=== PATIENT | female | born 1995 | race Two or more races ===

== ENCOUNTER 2017-07-03 22:43 | Emergency (ER) | payer MEDICAID ==
[~2017-07-03] VITALS: Ht 157.5 cm; Wt 69.9 kg
[2017-07-03 22:51] VITALS: BP 114/75
--- NOTE | 2017-07-03 23:36 | NUR ---
Pt placed in bed 7.
--- NOTE | 2017-07-03 23:40 | NUR ---
PATIENT IS A 22 Y/O FEMALE WHO PRESENTS TO THE ED C/O ABD PAIN. PT STATES, "I AM 8 WEEKS AND I HAVE BEEN HAVING SOME ABD PAIN RECENTLY, I FEEL LIKE I HAVE A FEVER AND CHILLY." PT REPORTS TAKING MEDICINE FOR A BLADDER INFECTION AND CANNOT EAT. PT REPORTS 9/10 SHARP ABD PAIN THAT DOES NOT RADIATE. PT DENIES CP, SOB, REPORTS VOMITING DENIES NAUSEA/DIARRHEA. PT AAOX4, RR EVEN/UNLABORED. PT REPOSITIONED FOR COMFORT, BED IN LOWEST POSITION. ER MD DR. SALAZAR NOTIFIED. WILL CONTINUE TO MONITOR.
--- NOTE | 2017-07-03 23:49 | NUR ---
Patient being evaluated by physician at bedside.
[2017-07-04] MEDS ORDERED: NACL 0.9% 1,000 ML IV ONE ×2 (00:04→02:25)
[2017-07-04] MEDS ORDERED: ONDANSETRON 4 MG/2 ML VIAL IVP ONE ×2 (00:05→02:25)
[2017-07-04 00:44] LABS: HEMOGLOBIN 13.7 g/dL (12.0-16.0); MEAN CORPUSCULAR HEMOGLOBIN 29 pg (27-31); MEAN CORPUSCULAR HGB CONC 34 g/dL (33-37); MEAN CORPUSCULAR VOLUME 86 fL (80-94); PLATELET COUNT (AUTO) 295 K/uL (140-450); RED CELL DISTRIBUTION WIDTH 12.4 % (11.6-13.7); WHITE BLOOD COUNT (AUTO) 13.9 K/uL (4.8-10.8)
[2017-07-04 00:46] LABS: EOSINOPHILS % (MANUAL) 1 % (0-4); LYMPHOCYTES % (MANUAL) 34 % (20-46); MONOCYTES % (MANUAL) 3 % (5-12)
[2017-07-04 00:47] LABS: ALBUMIN 3.9 g/dL (3.4-5.0); CARBON DIOXIDE 25.5 mmol/L (21-32); CREATININE 0.7 mg/dL (0.6-1.3); POTASSIUM 3.5 mmol/L (3.5-5.1); TOTAL BILIRUBIN 1.2 mg/dL (0.0-1.0)
[2017-07-04 01:07] LABS: APPEARANCE,URINE CLOUDY (CLEAR); BILIRUBIN,URINE 1+ (NEGATIVE); BLOOD, URINE NEGATIVE (NEGATIVE); COLOR,URINE YELLOW (YELLOW); LEUKOCYTE ESTERASE ,URINE 2+ (NEGATIVE); NITRITE, URINE NEGATIVE (NEGATIVE); PH,URINE 6.5 (5.0-9.0); UGLUCOSE NEGATIVE (NEGATIVE)
[2017-07-04 01:23] LABS: RBC,URINE 0-5 (RARE) /HPF (0-5); WBC,URINE TOO MANY TO COUNT /HPF (0-5)
--- NOTE | 2017-07-04 02:50 | NUR ---
Darlene zhu in EDM - 07/04/17 at 0311 by MEDMARIANV IV removed, catheter intact and site benign. Applied folded 4x4 gauze and tape to stop bleeding.
--- NOTE | 2017-07-04 03:05 | NUR ---
IV removed, catheter intact and site benign. Applied folded 4x4 gauze and tape to stop bleeding.
[2017-07-04 03:10] VITALS: BP 128/69
--- NOTE | 2017-07-04 03:10 | NUR ---
Patient discharged with v/s stable. Written and verbal after care instructions given and explained. Patient alert, oriented and verbalized understanding of instructions. Ambulatory with steady gait. All questions addressed prior to discharge. ID band removed. Patient advised to follow up with PMD. Rx of DICLEGIS 10MG/10MG given. Patient educated on indication of medication including possible reaction and side effects. Opportunity to ask questions provided and answered.
== END 2017-07-04 03:10 | disposition home or self-care (01) ==
LOC: MED 22:43
DX: O23.41 Unspecified infection of urinary tract in pregnancy, first trimester (principal); Z3A.08 8 weeks gestation of pregnancy; Z88.0 Allergy status to penicillin
CPT/HCPCS: 36415; 80053; 81001; 83690; 85025; 87086; 96361; 96374; 96375; 99284; J2405; J7030

== ENCOUNTER 2017-07-06 23:11 | Inpatient (IN) | payer MEDICAID ==
[~2017-07-06] VITALS: Ht 157.5 cm; Wt 74.8 kg
[2017-07-06 23:38] VITALS: BP 120/62
[2017-07-07 00:30] LABS: APPEARANCE,URINE HAZY (CLEAR); BILIRUBIN,URINE 1+ (NEGATIVE); BLOOD, URINE NEGATIVE (NEGATIVE); LEUKOCYTE ESTERASE ,URINE NEGATIVE (NEGATIVE); NITRITE, URINE NEGATIVE (NEGATIVE); UGLUCOSE NEGATIVE (NEGATIVE)
[2017-07-07 00:44] LABS: COLOR,URINE AMBER (YELLOW)
[2017-07-07 00:46] LABS: RBC,URINE 0-5 (RARE) /HPF (0-5)
[2017-07-07 01:03] LABS: HEMATOCRIT 45.1 % (36-48); HEMOGLOBIN 14.8 g/dL (12.0-16.0); MEAN CORPUSCULAR HEMOGLOBIN 28 pg (27-31); MEAN CORPUSCULAR HGB CONC 33 g/dL (33-37); MEAN CORPUSCULAR VOLUME 84 fL (80-94); PLATELET COUNT (AUTO) 307 K/uL (140-450); RED BLOOD CELL COUNT(AUTO) 5.35 MIL/uL (4.20-5.40); RED CELL DISTRIBUTION WIDTH 12.5 % (11.6-13.7); WHITE BLOOD COUNT (AUTO) 13.7 K/uL (4.8-10.8)
[2017-07-07 01:15] LABS: EOSINOPHILS % (MANUAL) 1 % (0-4); LYMPHOCYTES % (MANUAL) 19 % (20-46); MONOCYTES % (MANUAL) 3 % (5-12)
[2017-07-07 01:25] LABS: CARBON DIOXIDE 27.4 mmol/L (21-32); CREATININE 0.7 mg/dL (0.6-1.3); POTASSIUM 3.4 mmol/L (3.5-5.1)
[2017-07-07 01:30] LABS: ALBUMIN 4.2 g/dL (3.4-5.0); TOTAL BILIRUBIN 0.8 mg/dL (0.0-1.0)
--- NOTE | 2017-07-07 02:32 | NUR ---
PT TAKEN TO BED 6
--- NOTE | 2017-07-07 02:39 | NUR ---
Dr. Campos evaluating patient at bedside.
[2017-07-07] MEDS ORDERED: ONDANSETRON 4 MG/2 ML VIAL IVP ONE (02:45)
[2017-07-07] MEDS ORDERED: NACL 0.9% 1,000 ML IV ONE (02:45)
[2017-07-07] MEDS ORDERED: HYDROcodone/APAP 7.5/325 MG 1 TAB PO PRN (02:55)
[2017-07-07] MEDS ORDERED: ACETAMINOPHEN 325 MG TAB PO PRN (02:55)
[2017-07-07] MEDS ORDERED: cefTRIAXone 1,000 MG VIAL ONE (02:59)
--- NOTE | 2017-07-07 03:00 | NUR ---
22 Y/ F PT. PRESENTS TO ED W/C/O ABD PAIN, NAUSEA/VOMITING, AND CHILLSX 2 WKS.PT STATES IS 8 WKS . PT SEEN LAST SUNDAY AND DIAGNOSED WITH UTI. PT PLACED ON ANTIBIOTICS, BUT STATES NOT FEELNG BETTER.MED HX UTI's. PT CAN NOT RECALL HOME MEDS/DOSE AT THIS TIME. AAO X4, AMBULATORY WITH STEADY GAIT. ABDOMEN SOFT, NON TENDER, ACTIVE BS X4, C/O PAIN 5/. VSS, ER MADE AWARE OFPT. STATUS.
[2017-07-07] MEDS ORDERED: ONDANSETRON 4 MG/2 ML VIAL ONE (03:16)
--- NOTE | 2017-07-07 03:19 | NUR ---
PT CAN NOT RECALL HOME MEDS/DOSE AT THIS TIME.
--- NOTE | 2017-07-07 03:28 | NUR ---
Patient will be admitted to care of DR. HUNTER. Admited to TELEMETRY. Will go to [id number]. Belongings list completed. Report to DELPHINE SANTOS.
--- NOTE | 2017-07-07 03:45 | NUR ---
ADMITTED A 22 YEAR OLD FEMALE WHO WAS BROUGHT IN FROM THE ER VIA GURNEY WITH A DIAGNOSIS OF UTI,HYPEREMESIS GRAVIDARUM. PLACED IN ROOM 120-B AND HOOKED TO THE CARDIA MONITOR AND IS SINUS RHYTHM @ 70'S ON THE MONITOR. PT.IS ALERT,ORIENTED,AMBULATORY, NOT IN ACUTE DISTRESS. VERBALIZED RELIEF OF NAUSEA,VOMITING BUT STILL HAS MILD ABDOMINAL PAIN (3/10). PAIN MEDICATION OFFERED BUT REFUSED AT THIS TIME. VS STABLE, WILL CONTINUE TO MONITOR. NEEDS ATTENDED.
[2017-07-07] MEDS: NACL 0.9% 1,000 ML IV SCH ×2 (03:48→15:09)
--- NOTE | 2017-07-07 03:48 | NUR ---
IV FLUIDS NS 1 LITER AT 50 ML/HR STARTED. RT AT BEDSIDE TO DO 12 LEAD EKG.
[2017-07-07 04:00] VITALS: BP 104/58
[2017-07-07 04:05] LABS: PROTHROMBIN TIME 9.9 secs (10.8-13.4)
[2017-07-07 04:13] LABS: CHOL/HDL RATIO 3.9 (1-4.5); FREE T4 (FREE THYROXINE) 1.15 ng/dL (0.76-1.46); MAGNESIUM 1.8 mg/dL (1.8-2.4); PHOSPHORUS 3.8 mg/dL (2.5-4.9); THYROID STIMULATING HORMONE 0.57 uIU/mL (0.34-3.74)
--- NOTE | 2017-07-07 04:20 | NUR ---
CAME BY BEDSIDE TO EVALUATE PATIENT.
[2017-07-07 05:06] LABS: BENZODIAZEPINE, URINE NEG. ng/mL (NEG <=200); CANNABINOID, URINE NEG. ng/mL (NEG <=50); COCAINE, URINE NEG. ng/mL (NEG <=300); OPIATE, URINE NEG. ng/mL (NEG <=2000); PHENCYCLIDINE SCREEN,URINE NEG. ng/mL (NEG <=25)
[2017-07-07 05:08] LABS: BARBITURATE, URINE NEG. ng/ml (NEG <=200)
--- NOTE | 2017-07-07 07:30 | NUR ---
ENDORSED CARE TO CATINA AKERS.
[2017-07-07 07:55] LABS: BASOPHILS # (AUTO) 0.5 K/uL (0.00-0.22); BASOPHILS % (AUTO) 4.3 % (0.0-2.0); EOSINOPHILS # (AUTO) 0.1 K/uL (0-0.4); EOSINOPHILS % (AUTO) 0.6 % (0.0-4.0); HEMATOCRIT 37.9 % (36-48); HEMOGLOBIN 12.7 g/dL (12.0-16.0); LYMPHOCYTES # (AUTO) 2.2 K/uL (2.5-16.5); MEAN CORPUSCULAR HEMOGLOBIN 28 pg (27-31); MEAN CORPUSCULAR HGB CONC 34 g/dL (33-37); MEAN CORPUSCULAR VOLUME 85 fL (80-94); MONOCYTES # (AUTO) 0.6 K/uL (0.8-1.0); MONOCYTES % (AUTO) 5.2 % (1.7-9.3); NEUTROPHILS # (AUTO) 7.7 K/uL (1.8-7.7); NEUTROPHILS % (AUTO) 69.9 % (42.2-75.2); PLATELET COUNT (AUTO) 247 K/uL (140-450); RED BLOOD CELL COUNT(AUTO) 4.48 MIL/uL (4.20-5.40); RED CELL DISTRIBUTION WIDTH 12.3 % (11.6-13.7); WHITE BLOOD COUNT (AUTO) 11.1 K/uL (4.8-10.8)
[2017-07-07 08:00] VITALS: BP 95/54
--- NOTE | 2017-07-07 08:00 | NUR ---
RECEIVED REPORT FROM LYNSEY AKERS FOR CONTINUITY OF CARE. PATIENT AWAKE, A/OX4 NO S/S OF RESP DISTRESS NOTED NO COMPLAIN OF PAIN. ABLE TO MAKE NEEDS KNOWN NO N/V AT THIS TIME IV SITE RT AC GAUGE 20 INTACT AND PATENT. IVF INFUSING WELL. PLAN OF CARE DISCUSSED WITH THE PATIENT VITALS STABLE WILL CONTINUE TO MONITOR.
--- NOTE | 2017-07-07 08:03 | NUR ---
PATIENT HAS BEEN SCREENED AND CATEGORIZED LOW NUTRITION RISK. PATIENT WILL BE SEEN WITHIN 7 DAYS OF ADMISSION. 07/14/17 REECE LR MBA, RD
[2017-07-07 08:05] LABS: ANION GAP 13.1 (8-16); CARBON DIOXIDE 22.3 mmol/L (21-32); CREATININE 0.5 mg/dL (0.6-1.3); POTASSIUM 3.4 mmol/L (3.5-5.1)
[2017-07-07] MEDS: PANTOPRAZOLE 40 MG INJ VIAL IVP SCH (09:00)
--- NOTE | 2017-07-07 09:00 | NUR ---
DUE MEDS GIVEN TOLERATED WELL IVF INFUSING WELL , SELF MORNING CARE DONE.
[2017-07-07] MEDS ORDERED: POTASSIUM CHLORIDE 40 MEQ, LIDOCAINE 1% 25 MG in NACL 0.9% 250 ML IV SCH ×2 (09:30→11:00)
[2017-07-07] MEDS: DOCUSATE SODIUM 100 MG GELCAP PO SCH ×2 (10:07→21:15)
[2017-07-07] MEDS: LACTOBACILLUS RHAMNOSUS GG 1 EACH CAP PO SCH (10:08)
[2017-07-07 12:00] VITALS: BP 100/59
--- NOTE | 2017-07-07 12:00 | NUR ---
SLEEPING NO DISTRESS NOTED , DENIES ANY PAIN VITALS STABLE AT THIS TIME.
--- NOTE | 2017-07-07 15:00 | NUR ---
PATIENT C/O NAUSEA REGLAN IV GIVEN
[2017-07-07] MEDS: METOCLOPRAMIDE 10 MG/2 ML INJ VIAL IVP PRN (15:37)
[2017-07-07 16:10] VITALS: BP 100/66
--- NOTE | 2017-07-07 16:35 | NUR ---
PATIENT WANTED TO EAT JELLO AND CRACKERS GIVEN TOLERATED WELL , NOTIFIED MD TO ADVANCE DIET. VITALS STABLE AT THIS TIME.
--- NOTE | 2017-07-07 17:54 | NUR ---
DINNER SERVED DIET ADVANCED TO FULL LIQUID WILL OBSERVE PATIENT.
--- NOTE | 2017-07-07 19:34 | NUR ---
ENDORSE THE CARE TO WALLY.
--- NOTE | 2017-07-07 19:35 | NUR ---
PATIENT RECEIVED AWAKE ALERT ORIENTED RESTING IN BED AT THIS TIME, PATIENT DENIES PAIN PATIENT STATES,"I FEEL BETTER TODAY." FALL PRECAUTIONS CONTINUE TO BE IMPLEMENTED.PATIENT NEEDS MET.CALL LIGHT WITHIN REACH WILL CONTINUE TO MONITOR. Addendum: 07/07/17 at 2256 by Jessica Sarabia LVN WRONG PATIENT ENTRY
--- NOTE | 2017-07-07 19:35 | NUR ---
PATIENT IS CURRENTLY RESTING IN BED AWAKE ALERT ORIENTED HAS NO COMPLAINS OF FEELING NAUSEATED AT THIS TIME.PATIENT IS ABLE TO AMBULATE WELL TO THE BATHROOM AND DENIES ANY PAIN.CALL LIGHT WITHIN REACH WILL CONTINUE TO MONITOR.
[2017-07-07 20:00] VITALS: BP 107/59
--- NOTE | 2017-07-07 20:00 | NUR ---
Patient's Plan of Care was discussed and reviewed with BHARATHI: DUGLAS
--- NOTE | 2017-07-07 20:30 | NUR ---
PATIENT HAS A DISCHARGE ORDER BUT SAYS ONLY IF ITS OK WITH MD AMARO SO I PAGED MD AMARO. Addendum: 07/07/17 at 2256 by Jessica Sarabia LVN WRONG PATIENT ENTRY
--- NOTE | 2017-07-07 20:32 | NUR ---
I PAGED MD AMARO EARLIER AND HE CALLED ME BACK AND I ASKED HIM IF ITS OK WITH HIM FOR PATIENT TO BE DISCHARGED KARRIE HEREDIA SAID YES AND SAID TO HAVE PATIENT FOLLOW UP WITH PCP IN ONE WEEK. I ASKED HIM IF HE WANTS PATIENT TO CONTINUE WITH HIS HOME MEDICATIONS MD AMARO SAID YES HE WAS INFORMED OF PATIENT'S HOME MED LIST AND READ BACK DONE TO MD AND HE SAID ITS OK TO CONTINUE. Addendum: 07/07/17 at 2256 by Jessica Sarabia LVN WRONG PATIENT ENTRY
--- NOTE | 2017-07-07 21:00 | NUR ---
PATIENT SLEEPING IN BED AT THIS TIME.
--- NOTE | 2017-07-07 21:29 | NUR ---
I CALLED AND SPOKE TO CHERRY VILLASEÑOR AND INFORMED HER THAT PATIENT HAS A DISCHARGE ORDER FOR TONIGHT AND I SPOKE WITH MD AMARO VENDING MACHINE FILLER AND ALSO SAID IT WAS OK FOR PATIENT GO HOME TONITE AND SHE CAN FOLLOW UP WITH HER PCP IN ONE WEEK BUT SHE WON'T GO HOME TONIGHT EVEN THOUGH THERE IS AN ORDER BECAUSE WERE WAITING FOR TO ARRANGE FOR HOME HEALTH FOR THE PATIENT. I TRIED TO EXPLAIN TO DAUGHTER KASI BUT SHE WON'T LISTEN SHE KEEPS TELLING ME SHE IS UPSET WITH THE CARE PROVIDED TO HER MOTHER AND I TOLD HER IF SHE HAS ANY CONCERNS OR QUESTIONS SHE CAN TALK TO THE CHARGE NURSE KASI SAID SHE WILL DO IT WHEN HER MOTHER GETS DISCHARGE.I ENCOURAGED HER TO TALK TO THE CHARGE NURSE AND HEALTH PROGRAM SPECIALIST WHEN SHE HAS ANY PROBLEM OR CONCERN SHE TOLD ME THAT SHE HASN'T TOLD ANYONE BUT SHE INSISTS AND IS THREATENING TO FILE A COMPLAINT WHEN HER MOTHER GETS DISCHARGED. Addendum: 07/07/17 at 2255 by Jessica Sarabia LVN WRONG PATIENT ENTRY.
--- NOTE | 2017-07-07 22:58 | NUR ---
PATIENT RESTING IN BED AT THIS TIME. NO N/V NOTED.WILL CONTINUE TO MONITOR.
[2017-07-08] MEDS: METOCLOPRAMIDE 10 MG/2 ML INJ VIAL IVP PRN ×2 (00:14→09:31)
[2017-07-08] MEDS: NACL 0.9% 1,000 ML IV SCH ×2 (00:14→10:00)
--- NOTE | 2017-07-08 00:14 | NUR ---
PATIENT CURRENTLY VERY NAUSEOUS AND WANTS TO VOMIT PATIENT SITTING UP IN BED.DELPHINE DAVIS WAS NOTIFIED AND HE MEDICATED THE PATIENT WITH IV REGLAN. PATIENT CURRENTLY RESTING IN BED VITALS SIGNS TAKEN AND CURRENTLY WNL NO FEVER NOTED AT THIS TIME.PATIENT DENIES ANY PAIN.PATIENT ENCOURAGED TO ASK FOR ASSISTANCE.FRESH WATER MOSTLY ICE GIVEN TO THE PATIENT PER PATIENT'S REQUEST TO ALSO MOISTEN HER MOUTH.I EDUCATED THE PATIENT TO GO EASY ON THE ICE SO SHE DOESN'T BECOME NAUSEAOUS PATIENT VERBALIZES UNDERSTANDING.WILL CONTINUE TO OBSERVE.
[2017-07-08 00:20] VITALS: BP 105/61
--- NOTE | 2017-07-08 03:00 | NUR ---
PATIENT SLEEPING COMFORTABLY IN BED WILL CONTINUE TO MONITOR.CALL LIGHT WITHIN REACH.
--- NOTE | 2017-07-08 05:01 | NUR ---
PATIENT IS CURRENTLY SLEEPING WELL IN BED NEEDS MET.WILL CONTINUE TO MONITOR.
--- NOTE | 2017-07-08 07:20 | NUR ---
MD RIVERA CALLED AT [phone] AND AWARE HE HAS A CONSULT.
--- NOTE | 2017-07-08 07:20 | NUR ---
RECEIVED BEDSIDE REPORT FROM NIGHT NURSE. PATIENT AWAKE, A/OX4. NO S/S OF DISTRESS NOTED. DENIES PAIN AT THIS TIME. IV NOTED TO THE RIGHT AC, GAUGE 20, INTACT AND PATENT. IVF INFUSING WELL. WILL CONTINUE TO MONITOR.
--- NOTE | 2017-07-08 07:21 | NUR ---
PATIENT STABLE REPORT ENDORSED TO DELPHINE WALL.
[2017-07-08 08:00] VITALS: BP 120/71
[2017-07-08 08:37] LABS: BASOPHILS # (AUTO) 0.4 K/uL (0.00-0.22); BASOPHILS % (AUTO) 3.9 % (0.0-2.0); EOSINOPHILS # (AUTO) 0.1 K/uL (0-0.4); EOSINOPHILS % (AUTO) 1.3 % (0.0-4.0); HEMATOCRIT 39.1 % (36-48); HEMOGLOBIN 13.1 g/dL (12.0-16.0); LYMPHOCYTES # (AUTO) 1.7 K/uL (2.5-16.5); LYMPHOCYTES % (AUTO) 17.2 % (20.5-51.1); MEAN CORPUSCULAR HEMOGLOBIN 29 pg (27-31); MEAN CORPUSCULAR HGB CONC 34 g/dL (33-37); MEAN CORPUSCULAR VOLUME 85 fL (80-94); MONOCYTES # (AUTO) 0.6 K/uL (0.8-1.0); MONOCYTES % (AUTO) 6.2 % (1.7-9.3); NEUTROPHILS % (AUTO) 71.4 % (42.2-75.2); PLATELET COUNT (AUTO) 229 K/uL (140-450); RED BLOOD CELL COUNT(AUTO) 4.58 MIL/uL (4.20-5.40); RED CELL DISTRIBUTION WIDTH 12.5 % (11.6-13.7); WHITE BLOOD COUNT (AUTO) 9.8 K/uL (4.8-10.8)
[2017-07-08] MEDS: DOCUSATE SODIUM 100 MG GELCAP PO SCH (09:00)
[2017-07-08] MEDS ORDERED: CYANOCOBALAMIN 100 MCG TAB PO SCH (09:00)
[2017-07-08] MEDS ORDERED: PYRIDOXINE 50 MG TAB PO SCH (09:00)
[2017-07-08 09:07] LABS: ANION GAP 10.6 (8-16); CARBON DIOXIDE 24.1 mmol/L (21-32); CREATININE 0.5 mg/dL (0.6-1.3); POTASSIUM 3.7 mmol/L (3.5-5.1)
[2017-07-08 09:18] LABS: MAGNESIUM 1.7 mg/dL (1.8-2.4); PHOSPHORUS 3.4 mg/dL (2.5-4.9)
--- NOTE | 2017-07-08 09:30 | NUR ---
PT C/O NAUSEA AND VOMITING. NO S/S OF RESP DISTRESS NOTED. WILL ADMINISTER REGLAN.
[2017-07-08] MEDS: LACTOBACILLUS RHAMNOSUS GG 1 EACH CAP PO SCH (09:31)
[2017-07-08] MEDS: PANTOPRAZOLE 40 MG INJ VIAL IVP SCH (09:32)
--- NOTE | 2017-07-08 13:23 | NUR ---
PT HAS BEEN SEEN BY DR. BOLIVAR FLOWER. DR ARRANGED OFFICE APPOINTMENT WITH THE PT.
--- NOTE | 2017-07-08 13:39 | NUR ---
RECEIVED BEDSIDE REPORT FROM NIGHT NURSE. PATIENT AWAKE, A/OX4. NO S/S OF DISTRESS NOTED. DENIES PAIN AT THIS TIME. IV NOTED TO THE RIGHT AC, GAUGE 20, INTACT AND PATENT. IVF INFUSING WELL. WILL CONTINUE TO MONITOR. Addendum: 07/08/17 at 1350 by Rogers Taylor RN WRONG TIME, PLEASE DISREGARD THIS NOTE
[2017-07-08] MEDS ORDERED: NITR100C7 PO (15:17)
[2017-07-08] MEDS ORDERED: LACT10CA PO (15:17)
[2017-07-08] MEDS ORDERED: METO-485 PO (15:17)
[2017-07-08] MEDS ORDERED: ACET-2619 PO (15:19)
[2017-07-08] MEDS ORDERED: CALC500C17 PO (15:26)
[2017-07-08] MEDS ORDERED: MAG SULF 2000 MG/WATER PREMIX 50 ML IV SCH (16:00)
--- NOTE | 2017-07-08 18:30 | NUR ---
PT DISCHARGED PER MD ORDER. DISCHARGE INSTRUCTIONS GIVEN. MEDICATION TEACHING PROVIDED. PT VERBALIZED UNDERSTANDING. MADE PT AWARE OF FOLLOW UP APPOINTMENT WITH DR LUTZ ON 07/09/17 9AM. IV CATH DC'ED, TIP INTACT, PRESSURE APPLIED. PT LEFT IN STABLE CONDITION AND WITH ALL HER BELONGINGS.
--- NOTE | 2017-07-11 07:45 | NUR ---
RETRO REVIEW FAXED ER REPORT H&P AND DISCHARGE FORM TO [facility] [phone] AND [facility] [phone]
== END 2017-07-08 18:30 | disposition home or self-care (01) | DRG 566 ==
LOC: MED 23:11 → MTU 07-07 03:06
PROVIDERS: ADMIT Family Medicine; ATTEND Family Medicine
DX: O21.0 Mild hyperemesis gravidarum (principal); N17.0 Acute kidney failure with tubular necrosis; O23.41 Unspecified infection of urinary tract in pregnancy, first trimester; Z3A.08 8 weeks gestation of pregnancy; O09.511 Supervision of elderly primigravida, first trimester; O99.281 Endocrine, nutritional and metabolic diseases complicating pregnancy, first trimester; E87.6 Hypokalemia; O26.831 Pregnancy related renal disease, first trimester; R82.4 Acetonuria; E66.9 Obesity, unspecified; O99.211 Obesity complicating pregnancy, first trimester; Z68.30 Body mass index [BMI] 30.0-30.9, adult; E86.0 Dehydration
CPT/HCPCS: 36415; 76801; 80048; 80053; 80305; 81001; 81025; 82140; 82150; 83036; 83605; 83690; 83735; 83880; 84100; 84439; 84443; 84484; 84702; 85025; 85610; 85730; 87040; 87081; 87086; 93005; 96365; 96375; 99285; C9113; J0696; J2001; J2405; J2765; J3475; J3480; J7030; J7060; Q0092

== ENCOUNTER 2017-07-30 12:54 | Emergency (ER) | payer MEDICAID ==
[~2017-07-30] VITALS: Ht 157.5 cm; Wt 72.2 kg
[~2017-07-30 12:54] MED LIST: ACET-2619 PO; CALC500C17 PO; LACT10CA PO; METO-485 PO; NITR100C7 PO
[2017-07-30 13:36] VITALS: BP 102/60
--- NOTE | 2017-07-30 13:40 | NUR ---
PT AA&OX4 WITH EVEN AND STEADY GAIT; VSS AT THIS TIME; PT TO LOBBY AWAITING OPEN BED.
--- NOTE | 2017-07-30 14:40 | NUR ---
PT AMBULATED TO BED 10.
--- NOTE | 2017-07-30 14:41 | NUR ---
22F BIB SELF C/O 03/22 "CRAMPING" CONSTANT NON RADIATING BL LOWER BACK PAIN WITH BL LOWER ABDOMINAL X 2 DAYS. N/V X 3 WKS. . LMP 05/05/17. PT STATES 12 WEEKS WITH NO VAGINAL BLEEDING OR FEVERS AT THIS TIME. PT IS AOX4, RR ARE EVEN AND UNLABORED. NAD. PT POSITIONED TO COMFORT, BED DOWN. WILL CONTINUE TO MONITOR.
--- NOTE | 2017-07-30 14:42 | NUR ---
Patient being evaluated by Dr. Carreon at bedside.
[2017-07-30] MEDS ORDERED: NACL 0.9% 1,000 ML IV ONE (14:45)
[2017-07-30] MEDS ORDERED: ONDANSETRON 4 MG/2 ML VIAL IVP ONE (14:45)
[2017-07-30 15:02] LABS: EOSINOPHILS # (AUTO) 0.1 K/uL (0-0.4); LYMPHOCYTES # (AUTO) 1.9 K/uL (2.5-16.5)
[2017-07-30 15:03] LABS: APPEARANCE,URINE HAZY (CLEAR); BILIRUBIN,URINE 1+ (NEGATIVE); BLOOD, URINE NEGATIVE (NEGATIVE); LEUKOCYTE ESTERASE ,URINE TRACE (NEGATIVE); NITRITE, URINE NEGATIVE (NEGATIVE); UGLUCOSE NEGATIVE (NEGATIVE)
[2017-07-30 15:05] LABS: BASOPHILS # (AUTO) 0.4 K/uL (0.00-0.22); HEMOGLOBIN 14.1 g/dL (12.0-16.0); MEAN CORPUSCULAR HEMOGLOBIN 28 pg (27-31); MEAN CORPUSCULAR HGB CONC 34 g/dL (33-37); MEAN CORPUSCULAR VOLUME 85 fL (80-94); MONOCYTES # (AUTO) 0.7 K/uL (0.8-1.0); PLATELET COUNT (AUTO) 281 K/uL (140-450); RED BLOOD CELL COUNT(AUTO) 4.96 MIL/uL (4.20-5.40); RED CELL DISTRIBUTION WIDTH 12.9 % (11.6-13.7); WHITE BLOOD COUNT (AUTO) 11.1 K/uL (4.8-10.8)
[2017-07-30 15:08] LABS: COLOR,URINE AMBER (YELLOW)
[2017-07-30 15:13] LABS: RBC,URINE NONE SEEN /HPF (0-5)
[2017-07-30 15:14] LABS: WBC,URINE 0-5 (RARE) /HPF (0-5)
[2017-07-30] MEDS ORDERED: cefTRIAXone 1,000 MG VIAL ONE (15:18)
[2017-07-30 15:19] LABS: ANION GAP 12.1 (8-16); CARBON DIOXIDE 26.6 mmol/L (21-32); CREATININE 0.6 mg/dL (0.6-1.3); POTASSIUM 3.7 mmol/L (3.5-5.1)
[2017-07-30 15:23] LABS: PROTHROMBIN TIME 9.4 secs (10.8-13.4)
[2017-07-30 15:25] LABS: ALBUMIN 3.7 g/dL (3.4-5.0); TOTAL BILIRUBIN 0.9 mg/dL (0.0-1.0)
[2017-07-30 16:54] VITALS: BP 109/70
== END 2017-07-30 16:52 | disposition home or self-care (01) ==
LOC: MED 12:54
DX: O21.9 Vomiting of pregnancy, unspecified (principal); M54.5 Low back pain; R10.30 Lower abdominal pain, unspecified; Z79.899 Other long term (current) drug therapy; Z88.0 Allergy status to penicillin
CPT/HCPCS: 36415; 76801; 80053; 81001; 82150; 83690; 84702; 85025; 85610; 85730; 96365; 96375; 99285; J0696; J2405; J7030; J7060; Q0092

== ENCOUNTER 2017-09-08 09:59 | Emergency (ER) | payer MEDICAID ==
[~2017-09-08] VITALS: Ht 157.5 cm; Wt 70.3 kg
[2017-09-08 10:16] VITALS: BP 105/58
--- NOTE | 2017-09-08 10:52 | NUR ---
Pt taken to bed 12.
--- NOTE | 2017-09-08 11:00 | NUR ---
22/ presents to ED with complaints of vomiting x1 day. No active vomiting at this time. Pt reports 17 weeks . G-2 P-1. Denies abd pain, denies pain. Denies vaginal bleeding. VSS.
[2017-09-08] MEDS ORDERED: ONDANSETRON 4 MG/2 ML VIAL IVP ONE (11:05)
[2017-09-08] MEDS ORDERED: NACL 0.9% 1,000 ML IV ONE (11:05)
[2017-09-08 12:37] VITALS: BP 110/80
== END 2017-09-08 12:36 | disposition home or self-care (01) ==
LOC: MED 09:59
DX: O21.9 Vomiting of pregnancy, unspecified (principal); Z79.899 Other long term (current) drug therapy; Z88.0 Allergy status to penicillin
CPT/HCPCS: 96361; 96374; 99284; J2405; J7030

== ENCOUNTER 2018-07-05 13:03 | Emergency (ER) | payer MEDICAID ==
[~2018-07-05] VITALS: Ht 157.5 cm; Wt 84.1 kg
[2018-07-05 13:30] VITALS: BP 140/62
--- NOTE | 2018-07-05 13:38 | NUR ---
PT AMBULATED TO ED BED 4
--- NOTE | 2018-07-05 13:48 | NUR ---
c/o lt upper arm swelling/itchy/pain after recieving depo shot on 06/26/2018 at [facility] hx; denies rx; denies
--- NOTE | 2018-07-05 14:08 | NUR ---
ULTRASOUND AT BEDSIDE
[2018-07-05] MEDS ORDERED: SULFAMETH/TRIMETH DS 800/160MG 1 TAB PO ONE (14:30)
[2018-07-05 14:51] VITALS: BP 120/72
== END 2018-07-05 14:52 | disposition home or self-care (01) ==
LOC: MED 13:03
DX: L03.114 Cellulitis of left upper limb (principal); Z88.0 Allergy status to penicillin; Z79.899 Other long term (current) drug therapy; Z79.1 Long term (current) use of non-steroidal anti-inflammatories (NSAID)
CPT/HCPCS: 93971; 99284; Q0092

== ENCOUNTER 2019-02-04 21:28 | Emergency (ER) | payer MEDICAID ==
[~2019-02-04] VITALS: Ht 157.5 cm; Wt 84.4 kg
[2019-02-04 21:35] VITALS: BP 123/73
--- NOTE | 2019-02-04 21:35 | NUR ---
TO BED # 09 AMBULATORY
--- NOTE | 2019-02-04 21:40 | NUR ---
PT CAME INTO ER WITH C/O COUGH X 1 MONTH. PT STATED SHE HAS HAD SOB, CHEST PAIN WHEN COUGHING. LUNG SOUNDS CLEAR BILATERAL. NO FEVER AT THIS TIME. PT IS A/OX4. ER MD MADE AWARE OF STATUS. PT HAS HX OF ASTHMA. ALLERGIES TO PENICILLIN. SAFETY MEASURES IN PLACE.
[2019-02-04] MEDS ORDERED: ALBUTEROL SULFATE/IPRATROPIU 3 ML SOL IH ONE (22:05)
--- NOTE | 2019-02-04 22:20 | NUR ---
RT AT BEDSIDE
[2019-02-04 23:00] VITALS: BP 123/73
--- NOTE | 2019-02-04 23:00 | NUR ---
Patient discharged with v/s stable. Written and verbal after care instructions given and explained. Patient alert, oriented and verbalized understanding of instructions. Ambulatory with steady gait. All questions addressed prior to discharge. ID band removed. Patient advised to follow up with PMD. Rx of PROMETHAZINE AND ZITHROMAX given. Patient educated on indication of medication including possible reaction and side effects. Opportunity to ask questions provided and answered.
== END 2019-02-04 23:00 | disposition home or self-care (01) ==
LOC: MED 21:28
DX: J06.9 Acute upper respiratory infection, unspecified (principal); B96.89 Other specified bacterial agents as the cause of diseases classified elsewhere; R11.10 Vomiting, unspecified; J45.909 Unspecified asthma, uncomplicated; Z79.1 Long term (current) use of non-steroidal anti-inflammatories (NSAID); Z79.2 Long term (current) use of antibiotics; Z79.899 Other long term (current) drug therapy; Z88.0 Allergy status to penicillin
CPT/HCPCS: 71045; 81025; 94640; 99283; J7620; Q0092; 81002

== ENCOUNTER 2020-09-24 18:59 | Emergency (ER) | payer MEDICAID ==
[~2020-09-24] VITALS: Ht 154.9 cm; Wt 84.8 kg
[2020-09-24 19:02] VITALS: BP 124/78
--- NOTE | 2020-09-24 19:09 | NUR ---
TO BED 4 FROM TRIAGE WIT C/O HYPEREMESIS GRAVIDARUM. G3, P2, AB0. HAS BEEN VOMITING X 2 WEEKS. "IM FEELING A LITTLE TIRED NOW"
--- NOTE | 2020-09-24 19:09 | NUR ---
Darlene zhu in [facility] - 09/24/20 at 1919 by JOBY TO BED
[2020-09-24] MEDS ORDERED: diphenhydrAMINE 50 MG/ML VIAL IVP ONE (19:35)
[2020-09-24] MEDS ORDERED: LACTATED RINGERS 1,000 ML IV ONE ×2 (19:35→20:20)
[2020-09-24] MEDS ORDERED: METOCLOPRAMIDE 10 MG/2 ML INJ VIAL IVP ONE (19:35)
[2020-09-24 19:46] LABS: BASOPHILS # (AUTO) 0.1 K/uL (0.00-0.22); BASOPHILS % (AUTO) 0.5 % (0.0-2.0); EOSINOPHILS % (AUTO) 0.2 % (0.0-4.0); HEMATOCRIT 42.1 % (36-48); HEMOGLOBIN 14.1 g/dL (12.0-16.0); LYMPHOCYTES # (AUTO) 1.6 K/uL (2.5-16.5); LYMPHOCYTES % (AUTO) 11.5 % (20.5-51.1); MEAN CORPUSCULAR HEMOGLOBIN 29 pg (27-31); MEAN CORPUSCULAR HGB CONC 34 g/dL (33-37); MEAN CORPUSCULAR VOLUME 85.3 fL (80-94); MONOCYTES # (AUTO) 0.5 K/uL (0.8-1.0); MONOCYTES % (AUTO) 3.5 % (1.7-9.3); NEUTROPHILS # (AUTO) 11.9 K/uL (1.8-7.7); NEUTROPHILS % (AUTO) 84.3 % (42.2-75.2); PLATELET COUNT (AUTO) 285 K/uL (140-450); RED BLOOD CELL COUNT(AUTO) 4.93 MIL/uL (4.20-5.40); WHITE BLOOD COUNT (AUTO) 14.1 K/uL (4.8-10.8)
[2020-09-24 19:59] LABS: ALBUMIN 4.1 g/dL (3.4-5.0); ANION GAP 14.3 (8-16); CARBON DIOXIDE 26.3 mmol/L (21-32); CREATININE 0.8 mg/dL (0.6-1.3); POTASSIUM 3.6 mmol/L (3.5-5.1); TOTAL BILIRUBIN 1.1 mg/dL (0.0-1.0)
[2020-09-24 20:07] LABS: APPEARANCE,URINE CLEAR (CLEAR); BILIRUBIN,URINE 1+ (NEGATIVE); BLOOD, URINE NEGATIVE (NEGATIVE); COLOR,URINE ORANGE (YELLOW); LEUKOCYTE ESTERASE ,URINE TRACE (NEGATIVE); NITRITE, URINE NEGATIVE (NEGATIVE); PH,URINE 6.5 (5.0-9.0); UGLUCOSE NEGATIVE (NEGATIVE)
[2020-09-24 20:13] LABS: RBC,URINE 0-5 /HPF (0-5)
--- NOTE | 2020-09-24 22:00 | NUR ---
2ND L LR INFUSING. NAUSEA IS SUBSIDING. PT FEELING BETTER
[2020-09-24] MEDS ORDERED: ONDANSETRON 4 MG/2 ML VIAL IVP ONE (22:40)
[2020-09-24] MEDS ORDERED: ONDANSETRON 4 MG/2 ML VIAL ONE (22:42)
[2020-09-24 22:50] VITALS: BP 128/72
--- NOTE | 2020-09-24 22:50 | NUR ---
Patient discharged with v/s stable. Written and verbal after care instructions given and explained. Patient alert, oriented and verbalized understanding of instructions. Ambulatory with steady gait. All questions addressed prior to discharge. ID band removed. Patient advised to follow up with PMD. Rx of MACROBID given. Patient educated on indication of medication including possible reaction and side effects. Opportunity to ask questions provided and answered. IV D/C'D CATHETER INTACT
== END 2020-09-24 22:50 | disposition home or self-care (01) ==
LOC: MED 18:59
DX: O21.9 Vomiting of pregnancy, unspecified (principal); O23.41 Unspecified infection of urinary tract in pregnancy, first trimester; J45.909 Unspecified asthma, uncomplicated; Z79.899 Other long term (current) drug therapy; Z3A.01 Less than 8 weeks gestation of pregnancy
CPT/HCPCS: 36415; 80053; 81001; 85025; 87086; 96361; 96374; 96375; 99284; J1200; J2405; J2765

== ENCOUNTER 2020-10-15 00:02 | Emergency (ER) | payer MEDICAID ==
[~2020-10-15] VITALS: Ht 157.5 cm; Wt 84.8 kg
[2020-10-15 00:08] VITALS: BP 123/77
--- NOTE | 2020-10-15 00:25 | NUR ---
PT IS 12 WEEKS AND HAS BEEN EXPERIENCING UNCONTROLLED NAUSEA AND VOMITING SINCE THE BEGINNING OF . SAYS TODAY VOMITING HAS BEEN NONSTOP AND SHE IS UNABLE TO KEEP ANY FOOD OR FLUIDS DOWN. SHE IS ALSO HAVING SYMPTOMS OF A UTI, BURNING WITH URINATION AND FREQUENCY. SAYS SHE HAS ANTIBIOTICS BUT SHE IS UNABLE TO TAKE THEM DUE TO CONSTANT VOMITING. PT IS AFEBRILE. RESPIRATIONS REGULAR EVEN AND UNLABORED. BED IN LOWEST POSITION AND SIDERAIL UP X 1. ALLERGIES - PCN HX - HYPEREMESIS (PRIOR )
[2020-10-15] MEDS: ONDANSETRON 4 MG/2 ML VIAL IVP ONE (00:40)
[2020-10-15] MEDS: LACTATED RINGERS 1,000 ML IV ONE ×2 (00:40→01:55)
--- NOTE | 2020-10-15 00:41 | NUR ---
IV ESTABLISHED, LABS DRAWN AND GIVEN TO MANAGER DATABASE ADMINISTRATION
[2020-10-15 00:43] LABS: BASOPHILS % (AUTO) 0.2 % (0.0-2.0); EOSINOPHILS # (AUTO) 0.1 K/uL (0-0.4); EOSINOPHILS % (AUTO) 0.6 % (0.0-4.0); HEMOGLOBIN 13.9 g/dL (12.0-16.0); LYMPHOCYTES # (AUTO) 2.2 K/uL (2.5-16.5); LYMPHOCYTES % (AUTO) 17.7 % (20.5-51.1); MEAN CORPUSCULAR HEMOGLOBIN 29 pg (27-31); MEAN CORPUSCULAR HGB CONC 34 g/dL (33-37); MONOCYTES # (AUTO) 0.5 K/uL (0.8-1.0); MONOCYTES % (AUTO) 4.1 % (1.7-9.3); NEUTROPHILS # (AUTO) 9.6 K/uL (1.8-7.7); NEUTROPHILS % (AUTO) 77.4 % (42.2-75.2); PLATELET COUNT (AUTO) 251 K/uL (140-450); RED BLOOD CELL COUNT(AUTO) 4.82 MIL/uL (4.20-5.40); RED CELL DISTRIBUTION WIDTH 13.4 % (11.6-13.7); WHITE BLOOD COUNT (AUTO) 12.4 K/uL (4.8-10.8)
--- NOTE | 2020-10-15 00:47 | NUR ---
PT UNABLE TO PROVIDED UA AT THIS TIME, IV FLUIDS STARTED, PT HAS SPECIMEN CUP AT BEDSIDE
[2020-10-15 01:10] LABS: ALBUMIN 3.6 g/dL (3.4-5.0); ANION GAP 14.4 (8-16); CREATININE 0.7 mg/dL (0.6-1.3); POTASSIUM 3.4 mmol/L (3.5-5.1); TOTAL BILIRUBIN 0.8 mg/dL (0.0-1.0)
--- NOTE | 2020-10-15 01:36 | NUR ---
ULTRASOUND AT BEDSIDE
[2020-10-15] MEDS: POTASSIUM CHLORIDE 10 MEQ TABER PO SCH (01:46)
--- NOTE | 2020-10-15 01:46 | NUR ---
PT UP AND AMBULATED TO RESTROOM. ALSO C/O CONTINUED NAUSEA, AWARE, JULIA VAZ RECEIVED
[2020-10-15] MEDS: METOCLOPRAMIDE 10 MG/2 ML INJ VIAL IVP ONE (01:55)
[2020-10-15 02:02] LABS: APPEARANCE,URINE CLEAR (CLEAR); BILIRUBIN,URINE NEGATIVE (NEGATIVE); BLOOD, URINE NEGATIVE (NEGATIVE); COLOR,URINE YELLOW (YELLOW); LEUKOCYTE ESTERASE ,URINE 1+ (NEGATIVE); NITRITE, URINE NEGATIVE (NEGATIVE); PH,URINE 7.5 (5.0-9.0); UGLUCOSE NEGATIVE (NEGATIVE)
[2020-10-15 02:05] LABS: RBC,URINE 0-5 /HPF (0-5)
[2020-10-15] MEDS ORDERED: cefTRIAXone 1,000 MG VIAL ONE (03:00)
[2020-10-15] MEDS ORDERED: CEPH500T PO (03:33)
[2020-10-15 04:13] VITALS: BP 124/73
== END 2020-10-15 04:13 | disposition home or self-care (01) ==
LOC: MED 00:02
DX: O21.0 Mild hyperemesis gravidarum (principal); O23.41 Unspecified infection of urinary tract in pregnancy, first trimester; O26.891 Other specified pregnancy related conditions, first trimester; E87.6 Hypokalemia; D72.829 Elevated white blood cell count, unspecified; J45.909 Unspecified asthma, uncomplicated; Z79.899 Other long term (current) drug therapy; Z3A.01 Less than 8 weeks gestation of pregnancy
CPT/HCPCS: 36415; 76815; 80053; 81001; 83690; 84702; 85025; 87086; 96361; 96365; 96375; 99284; J0696; J2405; J2765; J7120

== ENCOUNTER 2023-12-13 01:25 | Emergency (ER) | payer MEDICAID ==
[~2023-12-13] VITALS: Ht 157.5 cm; Wt 95.3 kg
[~2023-12-13 01:25] MED LIST changes: +CEPH500T PO
[2023-12-13 01:29] VITALS: BP 127/63; PULSE 95; RESP 18; TEMP 98.7; O2SAT 97
[2023-12-13 01:32] VITALS: O2SAT 97
[2023-12-13] MEDS: LIDOCAINE/EPI 1% 1:100000 20 ML VIAL INJ ONE (01:40)
== END 2023-12-13 02:11 | disposition home or self-care (01) ==
LOC: MED 01:25
DX: S01.81XA Laceration without foreign body of other part of head, initial encounter (principal); J45.909 Unspecified asthma, uncomplicated; Z79.899 Other long term (current) drug therapy; Z88.0 Allergy status to penicillin; Y04.0XXA Assault by unarmed brawl or fight, initial encounter; Y93.89 Activity, other specified; Y92.89 Other specified places as the place of occurrence of the external cause; Y99.8 Other external cause status
CPT/HCPCS: 12013; 99283; J2001

== ENCOUNTER 2023-12-20 08:03 | Emergency (ER) | payer MEDICAID ==
[~2023-12-20] VITALS: Ht 157.5 cm; Wt 95.3 kg
[2023-12-20 08:11] VITALS: BP 117/64; PULSE 68; RESP 18; TEMP 98.3; O2SAT 99
== END 2023-12-20 08:41 | disposition home or self-care (01) ==
LOC: MED 08:03
DX: S01.91XD Laceration without foreign body of unspecified part of head, subsequent encounter (principal); J45.909 Unspecified asthma, uncomplicated; Z79.1 Long term (current) use of non-steroidal anti-inflammatories (NSAID); Z79.2 Long term (current) use of antibiotics; Z79.899 Other long term (current) drug therapy; Z88.0 Allergy status to penicillin; X58.XXXD Exposure to other specified factors, subsequent encounter
CPT/HCPCS: 99281